=== PATIENT | male | born 1955 | race Caucasian/White ===

== ENCOUNTER 2016-09-06 09:49 | Emergency (ER) | payer OTHER ==
[~2016-09-06 09:49] MED LIST: ADV250/50; ADV250/50 INH; ASPIR-LOW81 M1 PO; CARVEDILOL PO; CARVEDILOL12.5 M1 PO; CILOS OU; CLINDAMYCIN300 M1 PO; COL100 PO; COLACE100 MG PO; CORE25 PO; ENALAPRIL MALEA20 MG PO; ENALAPRIL MALEAT5 MG PO; ENALAPRIL PO; ESCITALOPRAM10 M1 PO; FLA500 PO; FUROSEMIDE20 MG PO; GOOD SENSE ASPI81 M3 PO; HYDROCODONE/ACE1 TA2 PO; LAC PO; LASIX20 MG PO; LASIX40 MG PO; LEVAQUIN750 MG PO; LEVOFLOXACIN500 M1 PO; LIPITOR40 MG PO; MEDDP PO; MONTELUKAST SOD10 M1 PO; MOTRIN800 MG PO; NOR10T PO; ONDANSETRON4 M3 PO; PRE10 PO; PREDNISONE10 MG PO; PRI20 PO; PRO2; PROAIR; PROAIR HFA0.09 MG/A1 INH; PULMICORT INH; PULMICORT180 MCG/Ac INH; QVAR0.04 MG/Ac IH; SIMVASTATIN40 M1 PO; SING10 PO; SPIRIVA; ULT50 PO; ZES20 PO; ZOC10 PO
[2016-09-06 14:23] VITALS: BP 146/97
== END 2016-09-06 14:23 | disposition home or self-care (01) ==
LOC: ED 09:49
DX: H16.001 Unspecified corneal ulcer, right eye (principal); L03.213 Periorbital cellulitis
CPT/HCPCS: J1170

== ENCOUNTER 2016-09-30 03:34 | Inpatient (IN) | payer OTHER ==
[2016-09-30] VITALS (10 sets, daily range): BP systolic 147–168; BP diastolic 78–98
[~2016-09-30] VITALS: Ht 175.3 cm; Wt 68.7 kg
[2016-09-30 04:15] LABS: BASOPHIL % 0.9 % (0-2); PLATELET COUNT 209 x10^3mcL (130-400)
[2016-09-30 04:16] LABS: RED CELL DISTRIBUTION WIDTH 16.5 % (11.5-14.5)
[2016-09-30 04:32] LABS: CALCIUM 8.2 mg/dL (8.5-10.1); CARBON DIOXIDE 35.6 mmol/L (21-32); CHLORIDE SERUM 107 mmol/L (98-107); CREATININE SERUM 1.2 mg/dL (0.7-1.3); GFR1 > 60 mL/min; GLUCOSE SERUM 113 mg/dL (74-106); POTASSIUM SERUM 4.2 mmol/L (3.5-5.1); SODIUM SERUM 146 mmol/L (136-145)
[2016-09-30 04:37] LABS: ALKALINE PHOSPHATASE 102 U/L (46-116); ALT/SGPT 29 U/L (16-63); AST/SGOT 28 U/L (15-37); TOTAL PROTEIN, SERUM 6.7 g/dL (6.4-8.2)
[2016-09-30 08:17] LABS: CHOLESTEROL/HDL RATIO 2.5
[2016-09-30 08:27] LABS: FREE T4 0.91 ng/dL (0.76-1.46); FREE THYROXINE INDEX 2.1 ug/dL (1.4-4.5); T4(THYROXINE) 5.7 ug/dL (4.7-13.3)
[2016-09-30 08:35] LABS: T3 TOTAL 1.06 ng/mL
[2016-09-30 11:58] LABS: microscopic required? NO
[2016-09-30 12:10] LABS: UA SPECIFIC GRAVITY 1.015 (1.005-1.035); urine erythrocyte NEGATIVE (NEGATIVE)
[2016-09-30 12:17] LABS: AMPHETAMINE QUAL UR NONE DETECTED (NEG <=1000)
[2016-10-01 05:36] VITALS: BP 167/104
[2016-10-01 06:39] LABS: PLATELET COUNT 187 x10^3mcL (130-400)
[2016-10-01 06:48] LABS: CALCIUM 8.5 mg/dL (8.5-10.1); CARBON DIOXIDE 36.7 mmol/L (21-32); CREATININE SERUM 1.4 mg/dL (0.7-1.3); MAGNESIUM 2.6 mg/dL (1.8-2.4); POTASSIUM SERUM 4.8 mmol/L (3.5-5.1)
[2016-10-01 06:49] LABS: RED CELL DISTRIBUTION WIDTH 16.1 % (11.5-14.5)
[2016-10-01 08:59] LABS: BAND NEUTROPHIL 3 % (0-10); BASOPHIL 0 % (0-2); MONOCYTE 1 % (0-7); SEGMENTED NEUTROPHILS 95 % (37-75)
[2016-10-01 09:00] LABS: PLATELET MORPHOLOGY PLATELETS DECREASED; rbc morphology (normal/abnorm) ABNORMAL (NORMAL)
[2016-10-01 09:23] VITALS: BP 157/87
[2016-10-01 14:19] VITALS: BP 158/98
[2016-10-01 18:44] VITALS: BP 145/89
[2016-10-01 21:19] VITALS: BP 1107/71
[2016-10-01 21:27] VITALS: BP 107/71
[2016-10-02 06:06] VITALS: BP 133/70
[2016-10-02 06:29] LABS: PLATELET COUNT 203 x10^3mcL (130-400)
[2016-10-02 06:42] LABS: RED CELL DISTRIBUTION WIDTH 16.5 % (11.5-14.5)
[2016-10-02 07:16] LABS: CALCIUM 8.8 mg/dL (8.5-10.1); CHLORIDE SERUM 104 mmol/L (98-107); CREATININE SERUM 1.3 mg/dL (0.7-1.3); GFR1 > 60 mL/min; GLUCOSE SERUM 124 mg/dL (74-106); MAGNESIUM 2.4 mg/dL (1.8-2.4); POTASSIUM SERUM 4.9 mmol/L (3.5-5.1); SODIUM SERUM 141 mmol/L (136-145)
[2016-10-02 09:22] VITALS: BP 161/100
[2016-10-02 11:00] LABS: SEGMENTED NEUTROPHILS 90 % (37-75)
[2016-10-02 11:01] LABS: BAND NEUTROPHIL 1 % (0-10); MONOCYTE 3 % (0-7); rbc morphology (normal/abnorm) ABNORMAL (NORMAL)
[2016-10-02 11:02] LABS: PLATELET MORPHOLOGY LARGE PLATELET SEEN
[2016-10-02 12:54] VITALS: BP 132/96
[2016-10-02 18:06] VITALS: BP 144/96
[2016-10-02 21:24] VITALS: BP 135/79
[2016-10-03 06:05] VITALS: BP 117/78
[2016-10-03 06:13] LABS: BASOPHIL % 0.6 % (0-2); PLATELET COUNT 180 x10^3mcL (130-400)
[2016-10-03 06:34] LABS: CALCIUM 8.5 mg/dL (8.5-10.1); CARBON DIOXIDE 34.3 mmol/L (21-32); CREATININE SERUM 1.4 mg/dL (0.7-1.3); POTASSIUM SERUM 4.3 mmol/L (3.5-5.1)
[2016-10-03 07:15] LABS: RED CELL DISTRIBUTION WIDTH 16.5 % (11.5-14.5)
[2016-10-03 10:30] VITALS: BP 112/70
[2016-10-03 10:48] VITALS: BP 117/78
[2016-10-03 14:00] VITALS: BP 121/66
[2016-10-03 18:00] VITALS: BP 131/78
[2016-10-03 21:04] VITALS: BP 136/87
[2016-10-04 05:22] VITALS: BP 117/83
[2016-10-04] MEDS ORDERED: LEVAQUIN500 M1 PO (09:54)
[2016-10-04] MEDS ORDERED: LAC PO (09:55)
[2016-10-04] MEDS ORDERED: CORE25 PO (09:55)
[2016-10-04 10:03] VITALS: BP 145/76
[2016-10-04 13:18] VITALS: BP 145/76
[2016-10-04 14:04] VITALS: BP 103/55
== END 2016-10-04 18:24 | disposition home or self-care (01) | DRG 140 ==
LOC: ED 03:34 → DU 05:36
PROVIDERS: Emergency Medicine; Family Medicine; ADMIT Family Medicine
DX: J44.0 Chronic obstructive pulmonary disease with (acute) lower respiratory infection (principal); J96.00 Acute respiratory failure, unspecified whether with hypoxia or hypercapnia; I50.43 Acute on chronic combined systolic (congestive) and diastolic (congestive) heart failure; J18.9 Pneumonia, unspecified organism; I11.0 Hypertensive heart disease with heart failure; I42.0 Dilated cardiomyopathy; Z99.81 Dependence on supplemental oxygen; E44.0 Moderate protein-calorie malnutrition; J44.1 Chronic obstructive pulmonary disease with (acute) exacerbation; F15.93 Other stimulant use, unspecified with withdrawal; E11.9 Type 2 diabetes mellitus without complications; E66.9 Obesity, unspecified; I25.2 Old myocardial infarction; Z79.82 Long term (current) use of aspirin; Z68.38 Body mass index [BMI] 38.0-38.9, adult; Z87.891 Personal history of nicotine dependence; Z95.810 Presence of automatic (implantable) cardiac defibrillator; Z79.1 Long term (current) use of non-steroidal anti-inflammatories (NSAID); Z82.49 Family history of ischemic heart disease and other diseases of the circulatory system; Z88.8 Allergy status to other drugs, medicaments and biological substances
CPT/HCPCS: 80307; 83880; 84439; G0480; J0456; J0696; J1940; J1956; J2920; J2930; J3475; J3490; J7030; J7040; J7050; J7613; J7620; J7626; J7644; Q0092

== ENCOUNTER 2016-10-07 05:04 | Emergency (ER) | payer OTHER ==
[~2016-10-07 05:04] MED LIST changes: +LEVAQUIN500 M1 PO
[2016-10-07 05:41] LABS: BASOPHIL % 1.5 % (0-2); PLATELET COUNT 168 x10^3mcL (130-400)
[2016-10-07 05:43] LABS: RED CELL DISTRIBUTION WIDTH 16.7 % (11.5-14.5)
[2016-10-07 06:08] LABS: CALCIUM 8.4 mg/dL (8.5-10.1); CARBON DIOXIDE 30.4 mmol/L (21-32); CHLORIDE SERUM 107 mmol/L (98-107); CREATININE SERUM 1.2 mg/dL (0.7-1.3); GFR1 > 60 mL/min; GLUCOSE SERUM 113 mg/dL (74-106); POTASSIUM SERUM 4.3 mmol/L (3.5-5.1); SODIUM SERUM 142 mmol/L (136-145)
[2016-10-07 10:18] VITALS: BP 138/101
== END 2016-10-07 10:18 | disposition home or self-care (01) ==
LOC: ED 05:04
PROVIDERS: Emergency Medicine
DX: R51 Headache (principal); R11.0 Nausea; H57.12 Ocular pain, left eye; J44.9 Chronic obstructive pulmonary disease, unspecified; I25.10 Atherosclerotic heart disease of native coronary artery without angina pectoris; I10 Essential (primary) hypertension; I50.9 Heart failure, unspecified; F15.90 Other stimulant use, unspecified, uncomplicated; F17.200 Nicotine dependence, unspecified, uncomplicated; Z86.73 Personal history of transient ischemic attack (TIA), and cerebral infarction without residual deficits; Z95.810 Presence of automatic (implantable) cardiac defibrillator; Z88.8 Allergy status to other drugs, medicaments and biological substances
CPT/HCPCS: J1200; J2270; J2405; J2765; J3490

== ENCOUNTER 2017-02-14 09:16 | Inpatient (IN) | payer OTHER ==
[~2017-02-14] VITALS: Ht 175.3 cm; Wt 103.4 kg
[2017-02-14 10:17] LABS: CALCIUM 8.4 mg/dL (8.5-10.1); CARBON DIOXIDE 27.6 mmol/L (21-32); CHLORIDE SERUM 103 mmol/L (98-107); CREATININE SERUM 1.2 mg/dL (0.7-1.3); GFR1 > 60 mL/min; GLUCOSE SERUM 116 mg/dL (74-106); POTASSIUM SERUM 4.4 mmol/L (3.5-5.1); SODIUM SERUM 136 mmol/L (136-145)
[2017-02-14 10:23] LABS: ALBUMIN 3.6 g/dL (3.4-5.0); ALKALINE PHOSPHATASE 89 U/L (46-116); ALT/SGPT 48 U/L (16-63); AST/SGOT 36 U/L (15-37); BILIRUBIN TOTAL 1.02 mg/dL (0.20-1.00); LIPASE 73 IU/L (73-393); TOTAL PROTEIN, SERUM 7.3 g/dL (6.4-8.2)
[2017-02-14 10:29] LABS: BASOPHIL % 0.6 % (0-2); PLATELET COUNT 159 x10^3mcL (130-400); RED CELL DISTRIBUTION WIDTH 13.7 % (11.5-14.5)
[2017-02-14] MEDS ORDERED: LASIX20 MG PO (12:20)
[2017-02-14] MEDS ORDERED: CORE25 PO (12:21)
[2017-02-14] MEDS ORDERED: ENALAPRIL MALEA10 MG PO (12:21)
[2017-02-14 12:58] VITALS: BP 122/71
[2017-02-14 13:21] LABS: MAGNESIUM 2.2 mg/dL (1.8-2.4); PHOSPHOROUS 2.4 mg/dL (2.5-4.9)
[2017-02-14 13:24] LABS: CHOLESTEROL/HDL RATIO 3.4
[2017-02-14 13:25] LABS: T3 TOTAL 0.81 ng/mL
[2017-02-14 13:33] LABS: FREE T4 1.01 ng/dL (0.76-1.46); FREE THYROXINE INDEX 2.2 ug/dL (1.4-4.5)
[2017-02-14 15:00] VITALS: BP 122/71
[2017-02-14 17:35] VITALS: BP 120/76
[2017-02-14 21:14] VITALS: BP 110/77
[2017-02-15 05:29] VITALS: BP 153/85
[2017-02-15 06:01] LABS: BASOPHIL % 0.7 % (0-2); RED CELL DISTRIBUTION WIDTH 13.9 % (11.5-14.5)
[2017-02-15 06:19] LABS: CARBON DIOXIDE 27.1 mmol/L (21-32); CHLORIDE SERUM 106 mmol/L (98-107); CREATININE SERUM 1.1 mg/dL (0.7-1.3); GFR1 > 60 mL/min; GLUCOSE SERUM 96 mg/dL (74-106); POTASSIUM SERUM 4.2 mmol/L (3.5-5.1); SODIUM SERUM 139 mmol/L (136-145)
[2017-02-15 06:23] LABS: PLATELET COUNT 125 x10^3mcL (130-400)
[2017-02-15 09:32] LABS: microscopic required? NO
[2017-02-15 09:38] LABS: UA SPECIFIC GRAVITY 1.025 (1.005-1.035); urine erythrocyte NEGATIVE (NEGATIVE)
[2017-02-15 09:46] LABS: AMPHETAMINE QUAL UR POSITIVE (NEG <=1000)
[2017-02-15 09:55] VITALS: BP 193/90
[2017-02-15 13:10] VITALS: BP 138/72
[2017-02-15 18:20] VITALS: BP 131/69
[2017-02-15 22:11] VITALS: BP 104/62
[2017-02-16 05:44] VITALS: BP 151/88
[2017-02-16 06:51] LABS: CALCIUM 8.6 mg/dL (8.5-10.1); CARBON DIOXIDE 28.8 mmol/L (21-32); CHLORIDE SERUM 104 mmol/L (98-107); CREATININE SERUM 1.2 mg/dL (0.7-1.3); GFR1 > 60 mL/min; GLUCOSE SERUM 141 mg/dL (74-106); MAGNESIUM 2.3 mg/dL (1.8-2.4); PHOSPHOROUS 2.5 mg/dL (2.5-4.9); POTASSIUM SERUM 4.1 mmol/L (3.5-5.1); SODIUM SERUM 139 mmol/L (136-145)
[2017-02-16 07:23] LABS: PLATELET COUNT 173 x10^3mcL (130-400); RED CELL DISTRIBUTION WIDTH 13.4 % (11.5-14.5)
[2017-02-16 07:26] LABS: BASOPHIL % 0 % (0-2)
[2017-02-16 09:47] VITALS: BP 161/54
[2017-02-16] MEDS ORDERED: LEVAQUIN750 MG PO (13:12)
[2017-02-16] MEDS ORDERED: MEDDP PO (13:14)
[2017-02-16] MEDS ORDERED: ALD25 PO (13:18)
[2017-02-16] MEDS ORDERED: LIPI10 PO (13:20)
[2017-02-16] MEDS ORDERED: CEL20 PO (13:21)
[2017-02-16] MEDS ORDERED: BAY PO (13:21)
[2017-02-16] MEDS ORDERED: LAC PO ×2 (13:22→13:50)
[2017-02-16 13:24] VITALS: BP 161/54
[2017-02-16] MEDS ORDERED: ALBUTEROL S5 MG/1 ML IH (13:28)
[2017-02-16 13:49] VITALS: BP 154/80
== END 2017-02-16 16:30 | disposition home or self-care (01) | DRG 776 ==
LOC: ED 09:16 → DU 11:41
PROVIDERS: Emergency Medicine; ADMIT Family Medicine Sports Medicine
DX: F15.10 Other stimulant abuse, uncomplicated (principal); I50.43 Acute on chronic combined systolic (congestive) and diastolic (congestive) heart failure; I42.0 Dilated cardiomyopathy; Z99.81 Dependence on supplemental oxygen; J44.1 Chronic obstructive pulmonary disease with (acute) exacerbation; E83.39 Other disorders of phosphorus metabolism; F33.9 Major depressive disorder, recurrent, unspecified; E78.5 Hyperlipidemia, unspecified; E86.0 Dehydration; E83.51 Hypocalcemia; I25.2 Old myocardial infarction; Z68.33 Body mass index [BMI] 33.0-33.9, adult; Z95.810 Presence of automatic (implantable) cardiac defibrillator; Z86.73 Personal history of transient ischemic attack (TIA), and cerebral infarction without residual deficits; E80.6 Other disorders of bilirubin metabolism; Z88.8 Allergy status to other drugs, medicaments and biological substances; I25.10 Atherosclerotic heart disease of native coronary artery without angina pectoris; I11.0 Hypertensive heart disease with heart failure; E66.01 Morbid (severe) obesity due to excess calories
CPT/HCPCS: 36600; 83880; 84439; 90658; 94150; J1940; J1956; J2920; J2930; J7030; J7620; J7633; Q0092

== ENCOUNTER 2017-05-29 11:37 | Emergency (ER) | payer OTHER ==
[~2017-05-29 11:37] MED LIST changes: +ALBUTEROL S5 MG/1 ML IH; +ALD25 PO; +BAY PO; +CEL20 PO; +ENALAPRIL MALEA10 MG PO; +LIPI10 PO
[2017-05-29 14:10] VITALS: BP 121/75
== END 2017-05-29 14:11 | disposition home or self-care (01) ==
LOC: ED 11:37
DX: R55 Syncope and collapse (principal); I11.0 Hypertensive heart disease with heart failure; I50.9 Heart failure, unspecified; I25.2 Old myocardial infarction; Z86.73 Personal history of transient ischemic attack (TIA), and cerebral infarction without residual deficits; J44.9 Chronic obstructive pulmonary disease, unspecified; Z88.8 Allergy status to other drugs, medicaments and biological substances

== ENCOUNTER 2017-07-16 15:02 | Emergency (ER) | payer OTHER ==
[~2017-07-16] VITALS: Ht 175.3 cm; Wt 106.1 kg
[2017-07-16 15:12] VITALS: Ht 175.3 cm; Wt 106.1 kg
[2017-07-16 18:04] VITALS: BP 164/104
== END 2017-07-16 18:04 | disposition home or self-care (01) ==
LOC: ED 15:02
DX: K04.7 Periapical abscess without sinus (principal); L03.211 Cellulitis of face; I10 Essential (primary) hypertension; J44.9 Chronic obstructive pulmonary disease, unspecified; I50.9 Heart failure, unspecified; Z88.1 Allergy status to other antibiotic agents; Z86.79 Personal history of other diseases of the circulatory system
CPT/HCPCS: J1885; J3490

== ENCOUNTER 2018-05-03 06:21 | Inpatient (IN) | payer OTHER ==
[~2018-05-03] VITALS: Ht 175.3 cm; Wt 79.4 kg
[2018-05-03] MEDS ORDERED: LASIX40 MG PO (06:50)
[2018-05-03 07:20] LABS: BASOPHIL % 0.3 % (0-2); PLATELET COUNT 177 x10^3mcL (130-400); RED CELL DISTRIBUTION WIDTH 13.5 % (11.5-14.5)
[2018-05-03 07:27] LABS: CALCIUM 8.2 mg/dL (8.5-10.1); CARBON DIOXIDE 26.7 mmol/L (21-32); CHLORIDE SERUM 105 mmol/L (98-107); CREATININE SERUM 1.2 mg/dL (0.7-1.3); GFR1 > 60 mL/min; GLUCOSE SERUM 121 mg/dL (74-106); POTASSIUM SERUM 3.9 mmol/L (3.5-5.1); SODIUM SERUM 140 mmol/L (136-145)
[2018-05-03 07:31] LABS: ALKALINE PHOSPHATASE 105 U/L (46-116); ALT/SGPT 12 U/L (16-63); AST/SGOT 24 U/L (15-37); BILIRUBIN TOTAL 0.76 mg/dL (0.20-1.00); TOTAL PROTEIN, SERUM 7.6 g/dL (6.4-8.2)
[2018-05-03 07:35] LABS: ALBUMIN 3.1 g/dL (3.4-5.0)
[2018-05-03 10:23] LABS: MAGNESIUM 2.1 mg/dL (1.8-2.4); PHOSPHOROUS 3.5 mg/dL (2.5-4.9)
[2018-05-03 13:00] VITALS: BP 154/99
[2018-05-03 16:59] LABS: microscopic required? NO
[2018-05-03 17:31] LABS: UA SPECIFIC GRAVITY 1.015 (1.005-1.035); urine erythrocyte NEGATIVE (NEGATIVE)
[2018-05-03 17:42] LABS: AMPHETAMINE QUAL UR POSITIVE (See below)
[2018-05-03 22:04] VITALS: BP 149/93
[2018-05-04 05:23] VITALS: BP 168/102
[2018-05-04 06:18] VITALS: BP 150/89
[2018-05-04 09:39] VITALS: BP 116/65
[2018-05-04 11:57] LABS: PLATELET COUNT 175 x10^3mcL (130-400); RED CELL DISTRIBUTION WIDTH 12.8 % (11.5-14.5)
[2018-05-04 11:59] LABS: BASOPHIL % 4.2 % (0-2); CALCIUM 8.7 mg/dL (8.5-10.1); CARBON DIOXIDE 29.5 mmol/L (21-32); CREATININE SERUM 1.4 mg/dL (0.7-1.3)
[2018-05-04 12:49] VITALS: BP 144/97
[2018-05-04 18:05] VITALS: Ht 175.3 cm; Wt 79.4 kg
[2018-05-04 18:06] VITALS: BP 144/100
[2018-05-04 20:33] VITALS: BP 133/86
[2018-05-05] VITALS (8 sets, daily range): BP systolic 113–156; BP diastolic 65–112
[2018-05-05 07:04] LABS: BASOPHIL % 1.3 % (0-2); PLATELET COUNT 175 x10^3mcL (130-400); RED CELL DISTRIBUTION WIDTH 12.7 % (11.5-14.5)
[2018-05-05 07:22] LABS: CALCIUM 8.1 mg/dL (8.5-10.1); CARBON DIOXIDE 28.8 mmol/L (21-32); CREATININE SERUM 1.4 mg/dL (0.7-1.3); MAGNESIUM 2.4 mg/dL (1.8-2.4); PHOSPHOROUS 3.3 mg/dL (2.5-4.9); POTASSIUM SERUM 3.9 mmol/L (3.5-5.1)
== END 2018-05-05 23:30 | disposition home or self-care (01) | DRG 190 ==
LOC: ED 06:21 → DU 08:36
PROVIDERS: Emergency Medicine; Family Medicine
DX: I21.4 Non-ST elevation (NSTEMI) myocardial infarction (principal); I50.23 Acute on chronic systolic (congestive) heart failure; J44.1 Chronic obstructive pulmonary disease with (acute) exacerbation; L03.116 Cellulitis of left lower limb; Z99.81 Dependence on supplemental oxygen; F17.210 Nicotine dependence, cigarettes, uncomplicated; F12.90 Cannabis use, unspecified, uncomplicated; I11.0 Hypertensive heart disease with heart failure; Z95.810 Presence of automatic (implantable) cardiac defibrillator; Z88.8 Allergy status to other drugs, medicaments and biological substances; Z86.73 Personal history of transient ischemic attack (TIA), and cerebral infarction without residual deficits; I25.2 Old myocardial infarction; Z82.49 Family history of ischemic heart disease and other diseases of the circulatory system; Z80.9 Family history of malignant neoplasm, unspecified; Z79.899 Other long term (current) drug therapy; Z71.6 Tobacco abuse counseling
CPT/HCPCS: 83880; J0696; J1644; J1650; J1940; J7050; J7613; Q0092

== ENCOUNTER 2018-05-18 03:06 | Inpatient (IN) | payer OTHER | END 2018-05-24 16:12 | disposition home or self-care (01) | LOC: ED 03:06 → DU 05:13 → ED 03:06 → DU 05:13 → ED 03:06 → DU 05:13 → ED 03:06 → DU 05:13 → ED 03:06 → DU 05:13 | DX: J44.1 Chronic obstructive pulmonary disease with (acute) exacerbation (principal); J96.01 Acute respiratory failure with hypoxia; N17.0 Acute kidney failure with tubular necrosis; I10 Essential (primary) hypertension ==

== ENCOUNTER 2018-06-06 06:15 | Inpatient (IN) | payer OTHER ==
[~2018-06-06] VITALS: Ht 175.3 cm; Wt 108.9 kg
[~2018-06-06 06:15] MED LIST changes: +APAP/HYDROCODON1 T13 PO; +BACTRIM DS1 TAB PO; +BACTROBAN21; +CARVEDILOL25 M1 PO
[2018-06-06 06:49] LABS: BASOPHIL % 0.1 % (0-2); PLATELET COUNT 283 x10^3mcL (130-400); RED CELL DISTRIBUTION WIDTH 14.3 % (11.5-14.5)
[2018-06-06 06:55] LABS: CALCIUM 8.8 mg/dL (8.5-10.1); CARBON DIOXIDE 22.8 mmol/L (21-32); CREATININE SERUM 1.6 mg/dL (0.7-1.3); POTASSIUM SERUM 4.1 mmol/L (3.5-5.1)
[2018-06-06 07:01] LABS: ALBUMIN 3.5 g/dL (3.4-5.0); BILIRUBIN TOTAL 0.7 mg/dL (0.20-1.00)
[2018-06-06 08:17] VITALS: BP 159/103
[2018-06-06 08:21] VITALS: Ht 175.3 cm; Wt 108.9 kg
[2018-06-06 13:30] VITALS: BP 163/107
[2018-06-06 14:58] VITALS: BP 152/99
[2018-06-06 17:28] VITALS: BP 129/91
[2018-06-06 20:45] VITALS: BP 122/70
[2018-06-07 05:22] VITALS: BP 124/77
[2018-06-07 09:34] VITALS: BP 141/74
[2018-06-07 13:41] VITALS: BP 125/80
[2018-06-07 17:05] VITALS: BP 124/86
[2018-06-07 21:38] VITALS: BP 125/82
[2018-06-08 05:37] VITALS: BP 146/99
[2018-06-08 06:21] LABS: CALCIUM 8.5 mg/dL (8.5-10.1); CARBON DIOXIDE 28.3 mmol/L (21-32); CREATININE SERUM 1.6 mg/dL (0.7-1.3); POTASSIUM SERUM 4.6 mmol/L (3.5-5.1)
[2018-06-08 06:45] LABS: PLATELET COUNT 239 x10^3mcL (130-400)
[2018-06-08 07:17] LABS: RED CELL DISTRIBUTION WIDTH 14.6 % (11.5-14.5)
[2018-06-08 09:55] VITALS: BP 143/94
[2018-06-08 13:28] VITALS: BP 144/85
[2018-06-08 14:52] LABS: BAND NEUTROPHIL 1 % (0-10); MONOCYTE 3 % (0-7); SEGMENTED NEUTROPHILS 91 % (37-75); rbc morphology (normal/abnorm) NORMAL (NORMAL)
[2018-06-08 14:53] LABS: PLATELET MORPHOLOGY PLATELETS NORMAL
[2018-06-08 16:37] VITALS: BP 137/90
[2018-06-08 21:07] VITALS: BP 138/87
[2018-06-08 21:18] VITALS: BP 107/62
[2018-06-09 06:02] VITALS: BP 136/82
[2018-06-09 06:44] LABS: BASOPHIL % 0.2 % (0-2); PLATELET COUNT 228 x10^3mcL (130-400); RED CELL DISTRIBUTION WIDTH 13.2 % (11.5-14.5)
[2018-06-09 07:05] LABS: CALCIUM 8.5 mg/dL (8.5-10.1); CARBON DIOXIDE 27.9 mmol/L (21-32); CREATININE SERUM 1.7 mg/dL (0.7-1.3); POTASSIUM SERUM 4.7 mmol/L (3.5-5.1)
[2018-06-09 09:21] VITALS: BP 149/94
[2018-06-09 12:33] VITALS: BP 149/94
[2018-06-09 13:58] VITALS: BP 132/86
== END 2018-06-09 14:30 | disposition home or self-care (01) | DRG 190 ==
LOC: ED 06:15 → DU 07:25
PROVIDERS: Emergency Medicine; ADMIT Internal Medicine
DX: I21.A1 Myocardial infarction type 2 (principal); J96.21 Acute and chronic respiratory failure with hypoxia; I47.2 Ventricular tachycardia; I50.43 Acute on chronic combined systolic (congestive) and diastolic (congestive) heart failure; J44.1 Chronic obstructive pulmonary disease with (acute) exacerbation; E66.01 Morbid (severe) obesity due to excess calories; I42.9 Cardiomyopathy, unspecified; Z99.81 Dependence on supplemental oxygen; F15.10 Other stimulant abuse, uncomplicated; I11.0 Hypertensive heart disease with heart failure; I25.2 Old myocardial infarction; Z95.810 Presence of automatic (implantable) cardiac defibrillator; Z86.73 Personal history of transient ischemic attack (TIA), and cerebral infarction without residual deficits; Z88.8 Allergy status to other drugs, medicaments and biological substances; Z82.49 Family history of ischemic heart disease and other diseases of the circulatory system; Z80.9 Family history of malignant neoplasm, unspecified; Z91.14 Patient's other noncompliance with medication regimen; Z68.35 Body mass index [BMI] 35.0-35.9, adult
CPT/HCPCS: 36600; 83880; J1644; J1940; J1956; J2930; J3490; J7050; J7613; J7620; J7626; Q0092